=== PATIENT | female | born 1965 | race Caucasian/White ===

== ENCOUNTER 2017-02-21 09:00 | Emergency (ER) | payer SELFPAY ==
[~2017-02-21] VITALS: Ht 167.6 cm; Wt 72.6 kg
--- NOTE | 2017-02-21 09:55 | RAD ---
Portable chest, 02/21/2017: History: Dysphasia The heart size and pulmonary vascularity are normal. No pulmonary infiltrates are seen. There is no evidence of pleural fluid. IMPRESSION: No acute cardiopulmonary abnormality is detected.
[2017-02-21] MEDS ORDERED: GLUCAGON,HUMAN RECOMBINANT 1 MG/ML VIAL. IV ONE (10:00)
[2017-02-21] MEDS ORDERED: MIDAZOLAM HCL/PF 2 MG/2 ML VIAL. IV ONE (10:00)
[2017-02-21] MEDS ORDERED: IV NORMAL SALINE 1000ML BAG 1,000 ML IV SCH (10:00)
[2017-02-21 10:02] LABS: BASO # 0.1 x10^3/uL (0.0-0.2); BASO % 1 % (0-3); EOS % 1 % (0-3); HEMATOCRIT 45.9 % (36.0-47.0); HEMOGLOBIN 15.8 g/dL (12.0-15.5); LYMPH # 2.8 x10^3/uL (1.0-4.8); LYMPH % 22 % (24-48); MEAN CORPUSCULAR HEMOGLOBIN 31 pg (25-35); MEAN CORPUSCULAR HGB CONC 34 g/dL (31-37); MEAN CORPUSCULAR VOLUME 91 fL (79-100); MONO % 6 % (0-9); NEUT % 70 % (31-73); PLATELET COUNT 293 x10^3/uL (140-400); RED BLOOD COUNT 5.03 x10^6/uL (3.50-5.40); RED CELL DISTRIBUTION WIDTH 13.4 % (11.5-14.5); WHITE BLOOD COUNT 12.7 x10^3/uL (4.0-11.0)
[2017-02-21 10:08] LABS: CALCIUM 9.1 mg/dL (8.5-10.1); CREATININE 0.9 mg/dL (0.6-1.0); GFR 65.5; POTASSIUM 4.2 mmol/L (3.5-5.1)
[2017-02-21 10:13] LABS: ALBUMIN 3.5 g/dL (3.4-5.0); ALBUMIN/GLOBULIN RATIO 0.7 (1.0-1.7); TOTAL BILIRUBIN 0.6 mg/dL (0.2-1.0); TOTAL PROTEIN 8.2 g/dL (6.4-8.2)
--- NOTE | 2017-02-21 10:26 | PHYS DOC ---
Past Medical History Past Medical History: No Pertinent History Past Surgical History: Other Additional Past Surgical Histo: SHOULDER Additional Information: 1 PPD Alcohol Use: Occasionally Additional Information: "A FEW BEERS EVERY NIGHT" Drug Use: None Adult General Chief Complaint Chief Complaint: OTHER COMPLAINTS HPI HPI Patient is a 52 year old female who presents with complaint of possible food bolus in the esophagus. Patient states that she was eating steak last night and felt a bite get stuck in her esophagus after swallowing. Patient states that this happened approximately 7:00 last night. Patient states since then she has been having difficulty being able to tolerate both solids and liquids. Patient states that she is able to swallow liquids past the oropharyngeal phase, however she regurgitates them right back up shortly thereafter. Patient denies any history of prior esophageal food bolus, however she states that she has had history of difficulty swallowing which resolved spontaneously. Patient does not follow with a primary doctor and is unaware of any medical problems. Patient denies any associated shortness of breath, diaphoresis, and denies substernal chest pressure. Patient feels the discomfort at the top portion of her chest and bottom portion of her neck. Review of Systems Review of Systems Constitutional: Denies fever or chills [] Eyes: Denies change in visual acuity, redness, or eye pain [] HENT: Dysphagia, denies nasal congestion [] Respiratory: Denies cough or shortness of breath [] Cardiovascular: Denies chest pain or edema [] GI: Vomiting, denies abdominal pain, bloody stools or diarrhea [] : Denies dysuria or hematuria [] Musculoskeletal: Denies back pain or joint pain [] Integument: Denies rash or skin lesions [] Neurologic: Denies headache, focal weakness or sensory changes [] Current Medications Current Medications Current Medications Medications (Trade) Dose Ordered Sig/Conor Start Time Stop Time Status Last Admin Dose Admin Glucagon (Glucagen) 1 mg 1X ONCE 02/21/17 10:00 02/21/17 10:01 DC 02/21/17 09:50 1 MG Midazolam HCl (Versed) 1 mg 1X ONCE 02/21/17 10:00 02/21/17 10:01 DC 02/21/17 09:51 1 MG Sodium Chloride 1,000 ml @ 100 mls/hr Q10H 02/21/17 10:00 02/21/17 19:59 02/21/17 09:49 100 MLS/HR Allergies Allergies Allergies Coded Allergies Type Severity Reaction Last Updated Verified No Known Drug Allergies 02/21/17 No Physical Exam Physical Exam Constitutional: Well developed, well nourished, no acute distress, non-toxic appearance. [] HENT: Normocephalic, atraumatic, bilateral external ears normal, oropharynx moist, unable to tolerate oral secretions, no oral exudates, nose normal. [] Eyes: PERRLA, EOMI, conjunctiva normal, no discharge. [] Neck: Normal range of motion, no tenderness, supple, no stridor. [] Cardiovascular:Heart rate regular rhythm, no murmur [] Lungs & Thorax: Bilateral breath sounds clear to auscultation [] Abdomen: Bowel sounds normal, soft, no tenderness, no masses, no pulsatile masses. [] Skin: Warm, dry, no erythema, no rash. [] Back: No tenderness, no CVA tenderness. [] Extremities: No tenderness, no cyanosis, no clubbing, ROM intact, no edema. [] Neurologic: Alert and oriented X 3, normal motor function, normal sensory function, no focal deficits noted. [] Current Patient Data Vital Signs Vital Signs Date Time Temp Pulse Resp B/P (MAP) Pulse Ox O2 Delivery O2 Flow Rate FiO2 02/21/17 13:14 92 123/77 (92) 96 Room Air 02/21/17 09:44 16 02/21/17 09:11 98.3 98.3 Lab Values Laboratory Tests Test 02/21/17 09:49 White Blood Count 12.7 x10^3/uL (4.0-11.0) H Red Blood Count 5.03 x10^6/uL (3.50-5.40) Hemoglobin 15.8 g/dL (12.0-15.5) H Hematocrit 45.9 % (36.0-47.0) Mean Corpuscular Volume 91 fL (79-100) Mean Corpuscular Hemoglobin 31 pg (25-35) Mean Corpuscular Hemoglobin Concent 34 g/dL (31-37) Red Cell Distribution Width 13.4 % (11.5-14.5) Platelet Count 293 x10^3/uL (140-400) Neutrophils (%) (Auto) 70 % (31-73) Lymphocytes (%) (Auto) 22 % (24-48) L Monocytes (%) (Auto) 6 % (0-9) Eosinophils (%) (Auto) 1 % (0-3) Basophils (%) (Auto) 1 % (0-3) Neutrophils # (Auto) 8.9 x10^3uL (1.8-7.7) H Lymphocytes # (Auto) 2.8 x10^3/uL (1.0-4.8) Monocytes # (Auto) 0.7 x10^3/uL (0.0-1.1) Eosinophils # (Auto) 0.2 x10^3/uL (0.0-0.7) Basophils # (Auto) 0.1 x10^3/uL (0.0-0.2) Sodium Level 141 mmol/L (136-145) Potassium Level 4.2 mmol/L (3.5-5.1) Chloride Level 106 mmol/L (98-107) Carbon Dioxide Level 24 mmol/L (21-32) Anion Gap 11 (6-14) Blood Urea Nitrogen 10 mg/dL (7-20) Creatinine 0.9 mg/dL (0.6-1.0) Estimated GFR (Cockcroft-Gault) 65.5 BUN/Creatinine Ratio 11 (6-20) Glucose Level 126 mg/dL (70-99) H Calcium Level 9.1 mg/dL (8.5-10.1) Total Bilirubin 0.6 mg/dL (0.2-1.0) Aspartate Amino Transferase (AST) 33 U/L (15-37) Alanine Aminotransferase (ALT) 49 U/L (14-59) Alkaline Phosphatase 101 U/L (46-116) Total Protein 8.2 g/dL (6.4-8.2) Albumin 3.5 g/dL (3.4-5.0) Albumin/Globulin Ratio 0.7 (1.0-1.7) L Lipase 150 U/L (73-393) Laboratory Tests 02/21/17 09:49 Laboratory Tests 02/21/17 09:49 EKG EKG Not performed [] Radiology/Procedures Radiology/Procedures [facility] [address] [place] [address] IMAGING REPORT Signed PATIENT: BONITA GUERRIER ACCOUNT: [id number] : 1965 LOCATION: ER AGE: 52 SEX: F EXAM STATUS: REG ER ORD. PHYSICIAN: ZENIA DAO MD REASON: dysphagia PROCEDURE: PORTABLE CHEST 1V Portable chest, 02/21/2017: History: Dysphasia The heart size and pulmonary vascularity are normal. No pulmonary infiltrates are seen. There is no evidence of pleural fluid. IMPRESSION: No acute cardiopulmonary abnormality is detected. DICTATED and SIGNED BY: DEREK IRVIN MD DATE: 02/21/17 0951 CC: ZENIA DAO MD; NO PCP ~ [] Course & Med Decision Making Course & Med Decision Making Pertinent Labs and Imaging studies reviewed. (See chart for details) Patient was given IV glucagon and Versed in the emergency department. On reevaluation the patient attempted to swallow water but unfortunately was unable to keep any liquids down. I suspect the patient has retained food bolus in the esophagus causing acute infection. I spoke with the gastroenterology service who evaluated the patient in the emergency department. The patient was taken to outpatient endoscopy lab for EGD. Patient will be discharged from endoscopy lab after the procedure. Dragon Disclaimer Dragon Disclaimer This electronic medical record was generated, in whole or in part, using a voice recognition dictation system. Departure Departure Impression: Primary Impression: Esophageal foreign body Disposition: 01 HOME, SELF-CARE Condition: STABLE Referrals: NO PCP (PCP) Problem Qualifiers Primary Impression: Esophageal foreign body Encounter type: initial encounter Qualified Codes: T18.108A - Unspecified foreign body in esophagus causing other injury, initial encounter ZENIA DAO MD Feb 21, 2017 10:26
--- NOTE | 2017-02-21 12:53 | PDOC2 ---
GI CONSULT Reason For Consult: Food bolus HPI: HPI: 52 y/o female seen in the ER, case previously d/w Dr. Montaño ER physician. Last night ate steak and a piece is stuck in the bottom of her throat. Unresolved w/ glucagon and versed, unable to maintain secretions. Perhaps has occurred a few times previously, not nearly this severe. Occasional heartburn, takes famotidine PRN. Denies n/v, abd pain, diarrhea, constipation, hematemesis , hematochezia, melena, weight loss. No previous EGD or colonoscopy. Feels anxious about having an EGD, wants to "leave and get some fresh air." Doesn't like seeing doctors. PMH: PMH: ?COPD, shoulder and knee surgeries FH: Family History: Other (grandfather - perforated duodenal ulcer) Social History: Smoke: 1 pack per day ALCOHOL: heavy ("a few beers a night") Drugs: None ROS: GEN: Denies fevers, chills, sweats HEENT: Denies blurred vision, sore throat CV: Denies chest pain RESP: Denies shortness of air, cough GI: Per HPI : Denies hematuria, dysuria ENDO: Denies weight changes NEURO: Denies confusion, dizziness MSK: Denies weakness, joint pain/swelling SKIN: Denies jaundice, pruritus Vitals: Vitals: Vital Signs Date Time Temp Pulse Resp B/P (MAP) Pulse Ox O2 Delivery O2 Flow Rate FiO2 02/21/17 11:44 88 139/91 (107) 95 Room Air 02/21/17 09:44 16 02/21/17 09:11 98.3 98.3 Labs: Labs: Laboratory Tests Test 02/21/17 09:49 White Blood Count 12.7 x10^3/uL (4.0-11.0) Red Blood Count 5.03 x10^6/uL (3.50-5.40) Hemoglobin 15.8 g/dL (12.0-15.5) Hematocrit 45.9 % (36.0-47.0) Mean Corpuscular Volume 91 fL (79-100) Mean Corpuscular Hemoglobin 31 pg (25-35) Mean Corpuscular Hemoglobin Concent 34 g/dL (31-37) Red Cell Distribution Width 13.4 % (11.5-14.5) Platelet Count 293 x10^3/uL (140-400) Neutrophils (%) (Auto) 70 % (31-73) Lymphocytes (%) (Auto) 22 % (24-48) Monocytes (%) (Auto) 6 % (0-9) Eosinophils (%) (Auto) 1 % (0-3) Basophils (%) (Auto) 1 % (0-3) Neutrophils # (Auto) 8.9 x10^3uL (1.8-7.7) Lymphocytes # (Auto) 2.8 x10^3/uL (1.0-4.8) Monocytes # (Auto) 0.7 x10^3/uL (0.0-1.1) Eosinophils # (Auto) 0.2 x10^3/uL (0.0-0.7) Basophils # (Auto) 0.1 x10^3/uL (0.0-0.2) Sodium Level 141 mmol/L (136-145) Potassium Level 4.2 mmol/L (3.5-5.1) Chloride Level 106 mmol/L (98-107) Carbon Dioxide Level 24 mmol/L (21-32) Anion Gap 11 (6-14) Blood Urea Nitrogen 10 mg/dL (7-20) Creatinine 0.9 mg/dL (0.6-1.0) Estimated GFR (Cockcroft-Gault) 65.5 BUN/Creatinine Ratio 11 (6-20) Glucose Level 126 mg/dL (70-99) Calcium Level 9.1 mg/dL (8.5-10.1) Total Bilirubin 0.6 mg/dL (0.2-1.0) Aspartate Amino Transf (AST/SGOT) 33 U/L (15-37) Alanine Aminotransferase (ALT/SGPT) 49 U/L (14-59) Alkaline Phosphatase 101 U/L (46-116) Total Protein 8.2 g/dL (6.4-8.2) Albumin 3.5 g/dL (3.4-5.0) Albumin/Globulin Ratio 0.7 (1.0-1.7) Lipase 150 U/L (73-393) Allergies: Coded Allergies: No Known Drug Allergies (Unverified , 02/21/17) Medications: Current Medications Medications (Trade) Dose Ordered Sig/Conor Route PRN Reason Start Time Stop Time Status Last Admin Dose Admin Sodium Chloride 1,000 ml @ 100 mls/hr Q10H IV 02/21/17 10:00 02/21/17 19:59 02/21/17 09:49 Midazolam HCl (Versed) 1 mg 1X ONCE IV 02/21/17 10:00 02/21/17 10:01 DC 02/21/17 09:51 Glucagon (Glucagen) 1 mg 1X ONCE IV 02/21/17 10:00 02/21/17 10:01 DC 02/21/17 09:50 Imaging: Imaging: CXR IMPRESSION: No acute cardiopulmonary abnormality is detected. PE: GEN: NAD HEENT: Atraumatic, PERRL LUNGS: CTAB anteriorly HEART: RRR ABD: NABS, S/ND/NT EXTREMITY: No edema SKIN: No rashes, no jaundice NEURO/PSYCH: A & O 3 A/P: A/P: Food bolus -piece of steak stuck since last night, unable to maintain secretions Heartburn -occasional symptoms, takes H2 dom PRN Tobacco and alcohol use -- Discussed EGD in detail with pt and family. D/w Dr. Zaldivar. Will proceed this afternoon for disimpaction. Called to GI lab. NICOLE GIVENS Feb 21, 2017 12:53
[2017-02-21 13:14] VITALS: BP 123/77
[2017-02-21] MEDS ORDERED: OMEG100021 PO (14:16)
--- NOTE | 2017-02-21 15:58 | PDOC4 ---
PROCEDURE Procedure EGD/FB removal/biopsies Indication: impacted food bolus, historically meat. Meds: per anesthesia Findings: E--meat encountered in distal esophagus, removed with snare x 2 pieces. No stricture or real reflux. G--Normal D--normal to second portion. biopsies mid-esophagus to r/o EE. [place]. well. IMP: impacted food, resolved. REC: await biopsies. f/u with me in 2 weeks in the office. chew well/small bites/plenty of liquids with meals. Thanks. BLANCO SCHMITZ MD Feb 21, 2017 15:58
== END 2017-02-21 13:44 | disposition home or self-care (01) ==
LOC: ER 09:00 → OPSVCOP 13:44 → ER 13:44
DX: T18.128A Food in esophagus causing other injury, initial encounter (principal); Y93.89 Activity, other specified; Y92.89 Other specified places as the place of occurrence of the external cause; Y99.8 Other external cause status
CPT/HCPCS: 36415; 71010; 80053; 83690; 85027; 96361; 96374; 96375; 99285; J1610; J2250; J7030

== ENCOUNTER → 2017-02-21 | Day surgery (SDC) | payer SELFPAY ==
[~2017-02-21] MED LIST: LIDOCAINE 2% PF Vial for OR 5 ML VIAL. ONE; OMEG100021 PO; PROPOFOL 20 ML IV ONE
[2017-02-21 16:15] VITALS: BP 149/86
--- NOTE | 2017-02-25 14:25 | PATHOLOGY ---
PATHOLOGY REPORT * * * * * * * * FINAL DIAGNOSIS: Esophageal biopsy: - Segments of mildly hyperplastic squamous esophageal mucosa with focal intraepithelial neutrophils, consistent with reflux esophagitis. COMMENT: Sections of the esophageal biopsy reveal segments of mildly hyperplastic squamous esophageal mucosa showing focal intraepithelial neutrophils and recent hemorrhage. The findings are consistent with reflux esophagitis. There is no evidence of an eosinophilic esophagitis. There is no evidence of Egan's change, dysplasia, or malignancy. (JPM:mgr; 02/25/2017) REPORT ELECTRONICALLY SIGNED BY: Declan Jenkins M.D. DATE/TIME: 02/25/2017 14:24 * * * * * * * * GROSS PATHOLOGY: Received in formalin labeled "Araceli Sutherland, esophageal biopsy," are two segments of steiner soft tissue measuring 0.2 and 0.3 cm in maximum dimension. The specimen is submitted entirely in cassette A1. (JPM; 02/22/17) INITIAL CPT CODE(S): A; 90525 Professional services performed by [facility] [place] [address] Technical services performed by [facility] at [address] [place] [address]. SPECIMEN(S) RECEIVED: A.Esophageal biopsy CLINICAL HISTORY: Food bolus; eosinophilic esophagitis? PATIENT: ARACELI SUTHERLAND /AGE: 6 1965 (Age: 52) PATIENT #: [id number] ALT CASE #: SPECIMEN COLLECTION DATE: 02/21/2017 SPECIMEN RECEIVED DATE: 02/22/2017 [facility] - [address] [place] [address] - PHONE: [phone] * * * END OF REPORT * * *
== END | disposition home or self-care (01) ==
LOC: SURG 13:51
PROVIDERS: ATTEND Internal Medicine Gastroenterology
DX: T18.128A Food in esophagus causing other injury, initial encounter (principal); M19.90 Unspecified osteoarthritis, unspecified site; Z87.39 Personal history of other diseases of the musculoskeletal system and connective tissue
CPT/HCPCS: 43239; J2001; J2704; 88305